=== PATIENT | female | born 1980 | race Caucasian/White ===

== ENCOUNTER 2022-03-14 12:59 | Emergency (ER) | payer BC, SELFPAY ==
[2022-03-14] VITALS (7 sets, daily range): BP systolic 144–181; BP diastolic 83–102; PULSE 65–77; RESP 18; TEMP 36.7; O2SAT 97–98; BMI 28.3
--- NOTE | 2022-03-14 14:25 | ED.FEMALEGU ---
HPI - Female Genitourinary General Time Seen by Provider: 14:25 Date Seen: 03/14/22 Chief complaint: Vaginal Bleeding Stated complaint: Severe menstrual bleeding Time Seen by Provider: 03/14/22 14:04 Source: patient and RN notes reviewed Mode of arrival: ambulatory Limitations: no limitations History of Present Illness HPI Narrative: Jessica is a 41-year-old female coming in with heavy bleeding the last 36 hours. It has abated some, has caused her to feel lightheaded but she denies shortness of breath, chest pain, weakness. No sense of palpitations or fast heart rate. She has had normal Pap smears, did just have March 03 at [facility] but has not heard the results back yet. I did check her records and the result is not in there yet. She did have a normal CBC and TSH done for labs that day. She has a pelvic ultrasound scheduled. She has had 3 prior C-sections, did have a recent negative test per her visit note of 03/03/2022. She had had very routine regular. Sin tell after her tubal ligation. . Started becoming irregular with spacing out, irregular spotting at times. They have started to become heavy, reports lots of clot in the last 36 hours and heavy bleeding. She is a smoker, is not aware of any family history of any female type cancers. Pertinent past history: tubal ligation Onset (ago): hour(s) (36 hours of heavy bleeding) Location of symptoms: pelvis (Is getting cramping and low back pain with this.) and low back Severity: moderate Quality of pain: cramping Consistency: intermittent Vaginal discharge: other (Bleeding) Vaginal bleeding: heavy and clots Patient : No (But will confirm with qualitative hCG) Related Data Home Medications Medication Instructions Recorded Confirmed magnesium stearate ea MISCELLANEOUS 03/03/22 03/03/22 Previous Rx's Medication Instructions Recorded bupropion HCl 150 mg 24 hr tablet, 150 mg PO QAM #90 tab 03/08/22 extended release trazodone 50 mg tablet 50 - 150 mg PO QDAY #60 tab 03/08/22 medroxyprogesterone 10 mg tablet 20 mg PO BID 10 Days #40 tab 03/14/22 (Provera) Allergies Allergy/AdvReac Type Severity Reaction Status Date / Time codeine Allergy Mild Vomiting Verified 03/03/22 12:36 Review of Systems Status of ROS: Reports: 6 or more systems reviewed and unremarkable except as noted in History and below [facility] Medical History Anxiety and depression Chest pain Elevated blood pressure reading Insomnia Irregular menstrual bleeding Surgical History History of History of tonsillectomy History of tubal ligation Family History (Updated 03/03/22 @ 13:47 by Carlie Owusu PA-C) Father High blood pressure Pancreatic cancer Maternal Grandfather FH: prostate cancer Mother ALS (amyotrophic lateral sclerosis) Social History Smoking Status: Current every day smoker What tobacco products do you use: cigarettes Do you use any of these nicotine containing products: None Second hand tobacco smoke exposure: No How often do you have a drink containing alcohol: 2-3 times a week How often do you have six or more drinks on one occasion: Never AUDIT-C Alcohol total score: 3 Non-prescribed substance use: denies use Little interest or pleasure in doing things: more than half the days Feeling down, depressed, or hopeless: more than half the days Exam Const: Vital Signs, click to edit/add: Vital Signs - 24 hr 03/14/22 13:17 03/14/22 14:15 03/14/22 14:30 Temperature 98.0 F Pulse Rate [Right Pulse Oximeter] 77 68 Respiratory Rate 18 Blood Pressure [Ri ght Upper Arm] 181/99 H 159/102 H 153/90 H Pulse Oximetry 98 03/14/22 15:00 03/14/22 15:30 03/14/22 16:35 Temperature Pulse Rate [Right Pulse Oximeter] 66 71 65 Respiratory Rate Blood Pressure [Ri ght Upper Arm] 145/93 H 147/88 H 144/92 H Pulse Oximetry 98 98 98 Documenting provider has reviewed patient's vital signs: yes Common normals: no apparent distress, average body habitus, oriented x3, healthy appearing and alert HENMT: Common normals: normocephalic, head/scalp atraumatic and hearing grossly normal bilaterally Head and scalp: normocephalic and atraumatic Eye: Common normals: PERRL, EOMs intact bilaterally, conjunctivae normal and no scleral icterus Conjunctiva: conjunctiva(e) normal Pupil: PERRL Neck & C-Spine: Common normals: no lymphadenopathy and thyroid normal Thyroid: thyroid normal Resp: Common normals: normal respiratory effort, no use of accessory muscles and clear to auscultation bilaterally Auscultation: clear to auscultation bilaterally Cardio: Common normals: regular rate, regular rhythm, S1 normal heart sound, S2 normal heart sound, no gallops, no clicks and no murmurs Rate: regular rate Rhythm: regular rhythm Heart sounds: S1 normal and S2 normal GI: Common normals: Normal to inspection, nondistended, normoactive bowel sounds present, soft to palpation, non-tender, no hepatosplenomegaly and no masses Palpation: soft and no hepatosplenomegaly : Other: Exam deferred at this point, did just have a pelvic exam 03/03/2022. Neuro: Common normals: oriented x3 Sensorium/orientation: alert Course Course Hospital Course: Patient and I reviewed that we will obtain her pelvic ultrasound today. We will recheck a hemoglobin to ensure no significant change from her baseline, we will confirm negative status with a qualitative hCG. We have reviewed that this can be typical with a gene with irregular bleeding/dysfunctional uterine bleeding, there can be things like adenomyosis, fibroids, even other more concerning pelvic pathology like uterine cancer. I am hopeful and doubtful that this is not concerning pelvic pathology such is uterine cancer for patient at this age but still is in the differential. Being a smoker she cannot take combined oral contraceptives. She may ultimately need to see Ob Gyne and discussed options such is progesterone hormonal control, surgical options. Some of this will depend on the outcome of the ultrasound and if it identifies any pathology. Reevaluation(s) Reevaluation #1: Patient's ultrasound is not showing any concerning pathology, hemoglobin is stable when compared to her recent hemoglobin. She is not . I did speak with Dr. Ochoa at 4:44 p.m., reviewed the case. She agrees patient should not be on combined contraceptives. Will discuss Provera with patient and see if she would like to try this. We would be treating for cessation of bleeding. Have discussed the progesterone with her and she will take a prescription to her pharmacy but thinks she will wait. Vital Signs Vital signs: Initial Vital Signs Temperature 98.0 F 03/14/22 13:17 Temperature Source Temporal Artery Scan 03/14/22 13:17 Pulse Rate 77 03/14/22 13:17 Respiratory Rate 18 03/14/22 13:17 Blood Pressure 181/99 H 03/14/22 13:17 Blood Pressure Mean 126 03/14/22 13:17 Blood Pressure Position Sitting 03/14/22 13:17 Oxygen Delivery Method 03/14/22 13:17 Vital Signs Temperature 98.0 F 03/14/22 13:17 Pulse Rate 77 03/14/22 13:17 Respiratory Rate 18 03/14/22 13:17 Blood Pressure 181/99 H 03/14/22 13:17 Temperature 98.0 F 03/14/22 13:17 Pulse Rate 65 03/14/22 16:35 Respiratory Rate 18 03/14/22 13:17 Blood Pressure 144/92 H 03/14/22 16:35 Pulse Oximetry 98 03/14/22 16:35 MDM - Female Genitourinary MDM Narrative Medical decision making narrative: See hospital course. Medical Records Attestation: I reviewed the patient's medical records. Lab Data Labs: Lab Results 03/14/22 03/14/22 Range/Units 14:39 14:39 Hgb 13.0 (12.0-16.0) gm/dL HCG, Qual Negative (Negative) Imaging Data Pelvic US: Attestation: I have reviewed the pertinent imaging results. Radiologist's impression: Patient: JESSICA TYLER Facility:?[facility] Patient ID:?[id number] Site Patient ID:?[id number]. Site :?[id number] Study:?US Pelvis -03/14/2022 4:08:30 PM Ordering Physician:?Gagandeep Gray Final Report: INDICATION: Menorrhagia, irregular bleeding. TECHNIQUE: Ultrasound pelvis transabdominal and transvaginal for better assessment or to better visualize the endometrium. COMPARISON: None. FINDINGS: Uterus: 10 x 5 x 4 cm. Normal echotexture of the myometrium. No masses. Endometrium: Transvaginal imaging was performed to better evaluate the endometrium. Endometrial thickness measures 6 mm. No sign of endometrial mass or fluid. Right ovary measures 4 x 3 x 3 cm. Left ovary is not visualized. Right ovary contains a simple appearing 2.5 cm cyst with an internal daughter cyst. Cul-de-sac: No significant free fluid. IMPRESSION: 1. Normal uterus and endometrium. No finding to explain menorrhagia. 2. Benign-appearing 2.5 cm right ovarian cyst with an internal daughter cyst. Dictated by Dong Melgar MD @ 03/14/2022 5:06:31 PM (Electronic Signature) Critical Care Time Critical Care Time Critical Care Time: No Discharge Plan Discharge Clinical Impression: Irregular menstrual bleeding, Menorrhagia Patient Disposition: Home, Self-Care Condition: Stable Instructions: Abnormal (Dysfunctional) Uterine Bleeding (ED), Menorrhagia (ED) Additional Instructions: Can try the progesterone with further heavy bleeding. Do expect to have a withdrawal bleed or more regular. After the progesterone is done. Recommend follow up with OB Gyne, can contact [place] [facility] to schedule an appointment. Do recommend monitoring your blood pressure to ensure that you are not developing high blood pressure. Activity Level: No Restrictions Discharge Diet: Regular Prescriptions: New medroxyprogesterone [Provera] 10 mg tablet 20 mg PO BID 10 Days Qty: 40 0RF No Action magnesium stearate Powder miscellaneous 0RF trazodone 50 mg tablet 50 - 150 mg PO QDAY Qty: 60 0RF bupropion HCl 150 mg tablet extended release 24 hr 150 mg PO QAM Qty: 90 0RF Follow Up/Referrals: Provider,Not a Local [Referring] - Stand Alone Forms: [employer] Info Instructions
--- NOTE | 2022-03-14 14:39 | CRLHL7_ITS ---
For Patients: As a result of the Century Cures Act, medical imaging exams and procedure reports are released immediately into your electronic medical record. You may view this report before your referring provider. If you have questions, please contact your health care provider. INDICATION: Menorrhagia, irregular bleeding. TECHNIQUE: Ultrasound pelvis transabdominal and transvaginal for better assessment or to better visualize the endometrium. COMPARISON: None. FINDINGS: Uterus: 10 x 5 x 4 cm. Normal echotexture of the myometrium. No masses. Endometrium: Transvaginal imaging was performed to better evaluate the endometrium. Endometrial thickness measures 6 mm. No sign of endometrial mass or fluid. Right ovary measures 4 x 3 x 3 cm. Left ovary is not visualized. Right ovary contains a simple appearing 2.5 cm cyst with an internal daughter cyst. Cul-de-sac: No significant free fluid. IMPRESSION: 1. Normal uterus and endometrium. No finding to explain menorrhagia. 2. Benign-appearing 2.5 cm right ovarian cyst with an internal daughter cyst. Dictated by Dong Melgar MD @ 03/14/2022 5:06:31 PM (Electronically Signed)
[2022-03-14 15:40] LABS: HCG Qualitative Serum* Negative (Negative)
== END 2022-03-14 17:31 | disposition home or self-care (01) ==
PROVIDERS: Emergency Provider Family Medicine; PCP Physician Assistant Medical
DX: N92.6 Irregular menstruation, unspecified (principal); N92.0 Excessive and frequent menstruation with regular cycle
CPT/HCPCS: 36415; 76830; 76856; 84703; 85018; 99283; 99284

== ENCOUNTER 2022-05-09 11:50 | Outpatient (CLI) | payer BC, SELFPAY | END 2022-05-09 11:51 | disposition home or self-care (01) | LOC: FRMREF 05-12 11:22 | PROVIDERS: PCP Physician Assistant Medical; Visit Provider Physician Assistant Medical | DX: R30.0 Dysuria (principal); N39.0 Urinary tract infection, site not specified | CPT/HCPCS: 87086; 87186 ==

== ENCOUNTER 2022-05-10 15:10 | Outpatient (CLI) | payer BC, SELFPAY ==
--- NOTE | 2022-05-10 15:20 | CRLHL7_ITS ---
For Patients: As a result of the Century Cures Act, medical imaging exams and procedure reports are released immediately into your electronic medical record. You may view this report before your referring provider. If you have questions, please contact your health care provider. BILATERAL SCREENING MAMMOGRAM WITH COMPUTER-AIDED DETECTION TECHNIQUE: CC and MLO views were obtained. These mammographic images have been obtained using full-field digital technique. These mammographic images were interpreted with the benefit of computer-aided detection. COMPARISON FILM: No comparison available. FINDINGS: There are scattered areas of fibroglandular density IMPRESSION: There is no radiographic evidence for malignancy. ASSESSMENT: BI-RADS Category 1: Negative RECOMMENDATION: Routine screening mammogram in 1 year. A lay language report of this examination will be provided to the patient. Stevo Crowell M.D. Diagnostic Radiologist [email or web address] ROBERT/Dictated by: Stevo Crowell MD @ 05/25/2022 12:04:00 PM (Electronically Signed)
== END 2022-05-10 15:11 | disposition home or self-care (01) ==
LOC: MAMMO 15:11
PROVIDERS: PCP Physician Assistant Medical; Visit Provider Physician Assistant Medical
DX: Z12.31 Encounter for screening mammogram for malignant neoplasm of breast (principal)
CPT/HCPCS: 77063; 77067

== ENCOUNTER 2022-05-19 10:04 | Outpatient (CLI) | payer BC, SELFPAY | END 2022-05-19 10:05 | disposition home or self-care (01) | LOC: FRMREF 10:05 | PROVIDERS: PCP Physician Assistant Medical; Visit Provider Physician Assistant Medical | DX: N39.0 Urinary tract infection, site not specified (principal) | CPT/HCPCS: 87086 ==

== ENCOUNTER 2023-03-15 09:21 | Outpatient (CLI) | payer OTHER, SELFPAY | END 2023-03-15 09:22 | disposition home or self-care (01) | LOC: NFLDREF 03-16 15:38 | PROVIDERS: PCP Physician Assistant Medical; Referring Provider Physician Assistant Medical; Visit Provider Physician Assistant Medical | DX: Z00.00 Encounter for general adult medical examination without abnormal findings (principal); E78.5 Hyperlipidemia, unspecified; E01.0 Iodine-deficiency related diffuse (endemic) goiter; N92.6 Irregular menstruation, unspecified; Z13.29 Encounter for screening for other suspected endocrine disorder; Z13.9 Encounter for screening, unspecified | CPT/HCPCS: 80053; 80061; 84443 ==

== ENCOUNTER 2023-03-19 14:57 | Outpatient (CLI) | payer OTHER, SELFPAY ==
--- NOTE | 2023-03-19 15:00 | CRLHL7_ITS ---
For Patients: As a result of the Cures Act, medical imaging exams and procedure reports are released immediately into your electronic medical record. You may view this report before your referring provider. If you have questions, please contact your health care provider. INDICATION: Neck swelling. Rule out thyroid lobe nodule. TECHNIQUE: Directed thyroid ultrasound. FINDINGS: The right thyroid lobe measures 5.1 x 2.0 x 2.4 cm. The left thyroid lobe measures 4.9 x 1.4 x 1.8 cm. The isthmus measures 0.3 cm in thickness. Diffusely heterogeneous echotexture throughout the thyroid gland. Within the inferomedial left thyroid lobe is a well-circumscribed isoechoic to slightly hyperechoic nodule measuring 1.4 x 0.7 x 1.6 cm. This is solid. TI-RADS 3. Within the superior left thyroid gland there is a 4 x 5 x 6 mm cystic lesion TI-RADS 2. Within the inferolateral right thyroid gland is a fairly well circumscribed 2.4 x 1.8 x 1.8 cm cystic and solid nodule without calcifications. This does not demonstrate increased vascularity. TI-RADS 3. No annia-thyroidal masses. IMPRESSION: 1. Heterogeneous thyroid gland tissue diffusely. 2. Two small nodules on the left and one on the right. Please see above description. 3. TI-RADS 3. Dictated by Mateo Geronimo MD @ 03/19/2023 8:01:32 PM (Electronically Signed)
== END 2023-03-19 14:58 | disposition home or self-care (01) ==
LOC: US 14:57
PROVIDERS: PCP Physician Assistant Medical; Visit Provider Physician Assistant Medical
DX: E01.0 Iodine-deficiency related diffuse (endemic) goiter (principal); R22.1 Localized swelling, mass and lump, neck
CPT/HCPCS: 76536

== ENCOUNTER 2023-09-20 09:54 | Outpatient (CLI) | payer OTHER, SELFPAY ==
[2023-09-24 08:37] LABS: Albumin 4.45 g/dL (3.75-5.01); Alpha 1 Globulin 0.22 g/dL (0.19-0.46); Alpha 2 Globulin 0.64 g/dL (0.48-1.05); Total Protein, Serum 6.8 g/dL (6.3-8.2)
== END 2023-09-20 09:55 | disposition home or self-care (01) ==
PROVIDERS: PCP Physician Assistant Medical; Visit Provider Family Medicine
DX: G12.21 Amyotrophic lateral sclerosis (principal); E01.0 Iodine-deficiency related diffuse (endemic) goiter; E78.5 Hyperlipidemia, unspecified; R53.83 Other fatigue; T50.B95A Adverse effect of other viral vaccines, initial encounter
CPT/HCPCS: 82306; 83735; 84165; 84443; 86039; 86060; 86200; 86334; 86376; 86431

== ENCOUNTER 2024-05-06 07:21 | Outpatient (CLI) | payer OTHER, SELFPAY | END 2024-05-06 07:22 | disposition home or self-care (01) | PROVIDERS: PCP Physician Assistant Medical; Visit Provider Family Medicine | DX: E78.5 Hyperlipidemia, unspecified (principal); E01.0 Iodine-deficiency related diffuse (endemic) goiter; Z11.59 Encounter for screening for other viral diseases; Z13.228 Encounter for screening for other metabolic disorders | CPT/HCPCS: 80053; 80061; 84443; 86803 ==

== ENCOUNTER 2024-12-05 13:23 | Emergency (ER) | payer OTHER, SELFPAY ==
--- OUTSIDE RECORDS SUMMARY | 2024-12-05 13:26 | XMS_ITS | Clinical Summary ---
Author Organization [facility] Address [address] [place] [address] Care Team Providers Care Phototypesetter Operator Name Role Phone Radha Crespo MD Primary Care Provider [phone] Source Comments You are receiving this document as you are listed as the primary care provider,follow-up provider, or the patient has been referred to you for consultation.This is in compliance with the Medicare andMedicaid EHR Incentive Program,which states Providers who transition their patient to another setting of careor provider of care or refers their patient to another provider of care shouldprovide summary care record for each transition of care or referral. [employer] website Allergies Active Allergy Reactions Criticality Noted Date Comments Codeine Nausea And Vomiting 08/23/2004 Medications ondansetron (ZOFRAN-ODT) 4 MG disintegrating tablet Take 1 Tablet by mouth every 8 hours as needed for Nausea. 20 Tablet 0 Active levonorgestrel-ethi nyl estrad (SRONYX) 0.1-20 MG-MCG tabletIndications:M enorrhagia with regular cycle Take 1 Tablet by mouth daily. 90 Tablet 3 0 Active FLUoxetine (PROZAC) 20 MG capsuleIndications: Mild episode of recurrent major depressive disorder (HRC) Take 1 Capsule by mouth daily. 30 Capsule 0 Active SUMAtriptan (IMITREX) 50 MG tabletIndications:M igraine without status migrainosus, not intractable, unspecified migraine type TAKE 1 TABLET BY MOUTH NEEDED FOR MIGRAINE. MAY REPEAT ONE TABLET AFTER 2 HOURS IF NEEDED. MAXIMUM 4 TABS/24 HOURS AND 9 DAYS/MONTH 9 Tablet 2 0 Active amitriptyline (ELAVIL) 100 MG tabletIndications:M igraine TAKE 1 TABLET BY MOUTH DAILY AT BEDTIME. INDICATIONS: MIGRAINE HEADACHE 90 Tablet 1 Active Active Problems Problem Noted Date Diagnosed Date Mild episode of recurrent major depressive disor mckenna 05/23/2017 Osteoarthrosis, hand 12/23/2013 Overview (04/25/2017): Osteoarthrosis, unspecified whether generalized or localized, hand Acne 04/16/2012 Smoker 02/20/2012 Overview (08/05/2018): Social smoker. Headache 02/02/2011 Overview (04/25/2017): Headache Vascular Resolved Problems Problem Noted Date Diagnosed Date Resolved Date Overuse syndrome 09/01/2014 03/02/2015 Previous delivery, antepartum condition or complication 10/10/2012 10/10/2012 History of 10/10/2012 013 Overview (04/06/2016): 2005,2007 and 2012 Gestational hypertension 09/02/2012 Previous section co mplicating 09/02/2012 10/10/2012 Intrahepatic cholestasis of 08/28/2012 08/30/2012 Intrahepatic cholestasis of , antepartum 08/26/2012 10/16/2012 Fetus with viral damage via mother with problem 08/12/2012 10/16/2012 Overview (04/25/2017): maternal Parvovirus infection documented ; Suspected damage to fetus from viral disease in mother, affecting management of mother, antepartum condition or complication abnormality affecting management of mother, antepartum condition or complication 07/31/2012 10/16/2012 Overview (04/25/2017): bilateral club foot deformity ; Other known or suspected abnormality, not elsewhere classified, affecting management of mother, antepartum condition or complication Bilateral club feet 06/12/2012 10/10/20 12 Previous delivery, antepartum condition or complication 03/19/2012 10/10/2012 Encounter for supervision of normal in multigravida 03/19/2012 10/10/2012 Overview (04/25/2017): Supervision of normal subsequent Immunizations Immunization Administration Dates Next Due Flu Vac Preserv Free (3+yrs) 07/10/2012,06/20/20 07 Influenza IIV4 (Quadrivalent) 0.5mL (24162) 11/2017 Moderna Monovalent 12+ 01/26/2021,12/29/2020 TDAP (BOOSTRIX) 04/03/2006 Td (7+ yrs) 05/24/2017 Family History Medical History Relation Name Comments High Cholesterol Father Hypertension Father Heart Disease Maternal Grandfather Cancer Paternal Grandfather Cancer, Breast Negative Family History Relation Name Status Comments Father Alive Mother (Age 58) ALS Brother Alive Maternal Grandfather Maternal Grandmother Paternal Grandfather Paternal Grandmother Alive Sister Alive Social History Tobacco Use Types Packs/Day Years Used Date Smoking Tobacco: Some Days Cigarettes 0.3 26.3 Started: 09/03/1998 Smokeless Tobacco: Never Comments:Smoking History Pac ks/day: Alcohol Use Standard Drinks/Week Comments Yes 2 (1 standard drink = 0.6 oz pure alcohol) Alcoholic Drinks/day:glass of wine or a beer twice a week Comments No Sex and Gender Information Value Date Recorded Sex Assigned at Not on file Legal Sex Female 7:01 AM CDT Gender Identity Not on file Sexual Orientation Not on file 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 on file Not on file N ot on file Last Filed Vital Signs Vital Sign Reading Time Taken Comments Blood Pressure 129/103 11/20/2019 9:38 AM CDT Pulse 71 11/20/2019 9:37 AM CDT Temperature 36.8 C (98.2 F) 11/12/2019 2:35 PM CDT Respiratory Rate 16 11/12/2019 2:35 PM CDT Oxygen Saturation 97% 11/12/2019 2:35 PM CDT Inhaled Oxygen Concentration - - Weight 78 kg (171 lb 14.4 oz) 08/05/2018 3:44 PM REED POLISHER Height 160.7 cm (5' 3.25) 08/05/2018 3:44 PM CS T Body Mass Index 30.21 08/05/2018 3:44 PM REED POLISHER Plan of Treatment Health Maintenance Due Date Last Done Comments Hep C Screening (Preventive Services) 1981 HepB (1) 2000 Pneumococcal (1 of 2 - PCV) 2000 Mammogram 08/15/2019 08/15/2018 Adult Preventive Visit 08/05/2020 08/05/2018, 2016 Cervical Cancer Screening 08/05/20212017, 08/05/2018, 02/16/2015, Additional history exists COVID-19 Vaccine ( season) 2024 01/26/2021, 12/29/2020 Influenza (#1) 2024 08/05/2018, 10/2013, 07/10/2012, Additional history exists DTaP/Tdap/Td (3 - Tdap) 05/24/2027 05/24/2017, 04/03 Zoster/Shingles (1 of 2) 2031 HIV Screening (Preventive Services) Completed 02/20/2012, 04/04/2007 HPV Vaccine Aged Out No longer eligi ble based on patient's age to complete this topic HepA Aged Out No longer eligi ble based on patient's age to complete this topic Hib Aged Out No longer eligi ble based on patient's age to complete this topic IPV (Polio) Aged Out No longer eligi ble based on patient's age to complete this topic MCV4 Aged Out No longer eligi ble based on patient's age to complete this topic Meningococcal B Aged Out No longer el igible based on patient's age to complete this topic Procedures Procedure Name Priority Date/Time Associated Diagnosis Comments YMM MAMMOGRAM DIAG BILAT W 3D BOOKER Routine 08/15/2018 1:56 PM REED POLISHER Breast lump ANATOMICAL PATH LIQUID BASED Routine 08/05/2018 4:26 PM REED POLISHER HIV ANTIBODY Routine 02/20/2012 3:30 PM CDT Special screening examination for other specified viral diseases Screening examination for venereal disease from Last 3 Months or Most Recently Relevant to Health Maintenance Results * [facility] Mammogram Diag Bilat W 3D Booker (08/15/2018 1:56 PM REED POLISHER) Anatomical Region Laterality Modality Breast Bilateral Mammography 08/15/2018 1:50 PM REED POLISHER Impressions 08/15/2018 3:11 PM REED POLISHER IMPRESSION: ACR BI-RADS 1: Negative. RECOMMENDATION: 1. Routine yearly mammography to start at age 40. 2. Clinical follow up of left breast lump. Given the lack of imaging findings, further management should be based on clinical grounds. The results and recommendations of this examination will be communicated to the patient by the [facility] and we will attempt to schedule any recommended imaging follow up with the patient. Narrative 08/15/2018 3:11 PM REED POLISHER EXAMINATION: Bilateral diagnostic mammography with focused left breast ultrasound HISTORY: Left breast lump COMPARISON: None FINDINGS: Bilateral diagnostic mammography with tomosynthesis demonstrates scattered fibroglandular densities bilaterally. No concerning mammographic findings within either breast. Focused left breast ultrasound demonstrates normal-appearing fibroglandular tissue in the area of the patient's palpable (1:30 position, 9 cm from the nipple). Additionally, normal appearing low left axillary node just superior to the patient's lump. No concerning sonographic findings. Procedure Note Radha Brown MD - 08/15/2018 EXAMINATION: Bilateral diagnostic mammography with focused left breastultrasound HISTORY: Left breast lump COMPARISON: None FINDINGS: Bilateral diagnostic mammography with tomosynthesis demonstratesscattered fibroglandular densities bilaterally. No concerning mammographicfindings within either breast. Focused left breast ultrasound demonstrates normal-appearingfibroglandular tissue in the area of the patient's palpable (1:30position, 9 cm from the nipple). Additionally, normal appearing low leftaxillary node just superior to the patient's lump. No concerningsonographic findings. IMPRESSION IMPRESSION: ACR BI-RADS 1: Negative. RECOMMENDATION: 1. Routine yearly mammography to start at age 40. 2. Clinical follow up of left breast lump. Given the lack of imagingfindings, further management should be based on clinical grounds. The results and recommendations of this examination will be communicatedto the patient by the [facility] [place] and we will attempt toschedule any recommended imaging follow up with the patient. Coreen Villalobos MD RAD [facility] Final Result * Pap Smear (08/05/2018 4:26 PM REED POLISHER) 08/05/2018 4:26 PM REED POLISHER Narrative PN SOFT - 08/20/2018 4:04 PM REED POLISHER FINAL GYNECOLOGICAL CYTOLOGY REPORT Pathology #: [id number] Date Obtained: 08/05/2018 Date Received: 08/06/2018 INTERPRETATION/RESULTS: Negative for Intraepithelial Lesion or Malignancy. SPECIMEN ADEQUACY: Satisfactory for Evaluation. No endocervical cells/transformation zone component present. Verified on 08/20/2018 by MIGUEL GREEN MD (electronic signature) CLINICAL NOTES: Abnormal bleeding: No, LMP: 07/16/18, Menstrual status: None Apply, Current form of therapy: Hormone Therapy LIQUID BASED PAP SMEAR SPECIMEN TYPE: ROUTINE CERVICAL PAP TEST PLEASE NOTE: The pap smear is a screening test designed to aid in the detection of cervical cancer and its precursor lesions. It is not a diagnostic procedure and should not be used as the sole means of detecting cervical cancer. Both false-positive and false-negative reports may occur. [place] [address] Result [facility] Coreen Villalobos MD LAB_1 Final Result Performing Organization Address [facility] de Phone Number [address] [address] * HIV ANTIBODY (02/20/2012 3:30 PM CDT) HIV 1/HIV 2 Non-React Non-Reacti ve HP CONVERSION 02/20/2012 3:30 PM CDT 02/20/2012 9:23 PM CDT Shannon Vargas APRN, OCEAN BIOLOGIST LAB_1 Fi nal Result Performing Organization Address [facility] Co de Phone Number HP CONVERSION from Last 3 Months or Most Recently Relevant to Health Maintenance Insurance BC OUT OF STATE [facility] BC OUT OF STATE Care Teams Phototypesetter Operator Relationship Specialty Start Date End Date Radha Crespo MD [address] [place] [address] PCP - General Family Practice 05/13/20
--- OUTSIDE RECORDS SUMMARY | 2024-12-05 13:26 | XMS_ITS | Clinical Summary ---
Author Organization [facility] Address [facility] [place] [address] Care Team Providers Care Supply Chain Program Manager Name Role Phone Bailee Chin Primary Care Provider Unavailabl e Allergies Active Allergy Reactions Criticality Noted Date Comments Codeine Nausea And Vomiting 08/23/2004 Medications SUMAtriptan (IMITREX) 50 mg tablet Take 50 mg by mouth. 02/09/2020 Active buPROPion (WELLBUTRIN XL) 300 mg Extended-Release tablet Take 300 mg by mouth every morning. 06/08/2022 Active traZODone (DESYREL) 50 mg tablet TAKE 50 - 150 MG ORALLY EVERY DAY 06/08/2022 Active Active Problems Problem Noted Date Diagnosed Date Mild episode of recurrent major depressive disor mckenna 05/23/2017 Smoker 02/20/2012 Overview (07/03/2022): Social smoker. Headache 02/02/2011 Overview (07/03/2022): Headache Vascular Immunizations Immunization Administration Dates Next Due Influenza, IIV4 08/05/2018 Td (Age >=7 Years) 05/24/2017 Td, Preservative Free (age >= 7 Years) 7 Tdap 04/03/2006 Family History Medical History Relation Name Comments Mental illness Brother Good Health Daughter Cancer-pancreatic Father Heart Disease Maternal Grandfather Heart attack Maternal Grandfather Unknown Maternal Grandmother ALS Mother Cancer Paternal Grandfather multipl e Brain Aneurysm Paternal Grandmother No Known Problems Sister Good Health Son x 2 Relation Name Status Comments Brother Alive Daughter Alive Father Maternal Grandfather Maternal Grandmother Mother Paternal Grandfather Paternal Grandmother Sister Alive Son x 2 Alive Social History Tobacco Use Types Packs/Day Years Used Date Smoking Tobacco: Former Cigarettes 1 24 0 09/03/1998 - 09/15/2022 Passive Smoke Exposure: Past Smokeless Tobacco: Never Alcohol Use Standard Drinks/Week Comments Yes 2 (1 standard drink = 0.6 oz pur e alcohol) occ. 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 on file Not on file Not on file Obstetrics History Last Filed Vital Signs Vital Sign Reading Time Taken Comments Blood Pressure 128/74 12/11/2022 1:48 PM CDT Pulse 93 09/12/2022 6:33 PM ECOMMERCE MERCHANDISING MANAGER Temperature 36.7 C (98 F) 09/12/2022 6:33 PM ECOMMERCE MERCHANDISING MANAGER Respiratory Rate 18 09/12/2022 6:33 PM ECOMMERCE MERCHANDISING MANAGER Oxygen Saturation 98% 09/12/2022 6:33 PM ECOMMERCE MERCHANDISING MANAGER Inhaled Oxygen Concentration - - Weight 74.8 kg (165 lb) 12/11/2022 1:48 PM CDT Height 160 cm (5' 3) 12/11/2022 1:48 PM CDT Body Mass Index 29.23 12/11/2022 1:48 PM CDT Plan of Treatment Health Maintenance Due Date Last Done Comments HIV for age 15-65 1996 Hepatitis C screening for age 18-79 1999 Depression screening for age 12+ 07/03/2023 07/03/2022 BMI (ht and wt on same day) for age 18+ 12/12/2023 12/11/2022, 07/03/2022, 02/24/2021 COVID-19 vaccine series ( season) 2024 09/18/2021, 01/26/2021, 12/29/2020 Influenza Vaccine (Season Ended) 2025 08/05/2018 Pap test for age 21-65 03/14/2026 , 03/14/2023, 03/03/2022, Additional history exists Tetanus booster 05/24/2027 05/24/2017, 05/05, 04/03/2006 Tdap Completed 04/03/2006 Pneumococcal series for age 6-49 Aged Out No longer eligible based on patient's age to complete this topic Procedures Procedure Name Priority Date/Time Associated Diagnosis Comments HPV HIGH RISK Routine 03/14/2023 3:00 PM CDT from Last 3 Months or Most Recently Relevant to Health Maintenance Results * HPV HIGH RISK (03/14/2023 3:00 PM CDT) TYPE 16 Negative Negative 03/20/2023 11:44 AM CDT [facility] TYPE 18 Negative Negative 03/20/2023 11:44 AM CDT [facility] OTHER HIGH RISK TYPES Negative Negative 03/20/2023 11:44 AM CDT [facility] Other (Cervical/Vagina l) 03/14/2023 3:00 PM CDT 03/15/2023 6:31 PM CDT Narrative [facility] - 03/20/2023 11:44 AM CDT HPV types 16, 18, 31, 33, 35, 39, 45, 51, 52, 56, 58, 59, 66 and 68 DNA were undetectable or below the pre-set threshold. Methodology: Dmitriy Addis 4800 HPV Test us Carlie Owusu PA-C MICROBIOLOGY Final Result [facility] [address] [place] [address], [place] from Last 3 Months or Most Recently Relevant to Health Maintenance Insurance [facility] [employer] Care Teams Supply Chain Program Manager Relationship Specialty Start Date [place] [facility] [place] PCP - General 07/03/22
[2024-12-05 13:28] VITALS: BP 149/87; PULSE 95; RESP 18; TEMP 37.7; O2SAT 97; BMI 28.3
--- NOTE | 2024-12-05 13:42 | CRLHL7_ITS ---
For Patients: As a result of the Century Cures Act, medical imaging exams and procedure reports are released immediately into your electronic medical record. You may view this report before your referring provider. If you have questions, please contact your health care provider. Indication: Right-sided visual loss. Technique: Multiplanar multisequence noncontrast MR images of the brain. Comparison: None. Findings: The ventricles and sulci are within normal limits for patient age. No mass effect or midline shift. No parenchymal signal abnormalities. No intracranial hemorrhage or pathologic extra-axial fluid collection. No diffusion restriction to suggest acute infarction. The major arterial flow voids of the skull base are preserved. The globes are symmetric. Mild left maxillary sinus mucosal thickening. Trace right mastoid fluid. Impression: Unremarkable noncontrast MRI of the brain. Dictated by Carlos Vaughn MD @ 12/05/2024 4:45:25 PM (Electronically Signed)
--- NOTE | 2024-12-05 13:45 | ED_ITS ---
HPI - Eye Problem General Chief complaint: Eye Problems <Andrzej Boston MD - Last Filed: 12/06/24 19:53> Stated complaint: Rt eye issues <Andrzej Boston MD - Last Filed: 12/06/24 19:53> Time Seen by Provider: 12/05/24 13:25 <Andrzej Boston MD - Last Filed: 12/06/24 19:53> History of Present Illness HPI Narrative: Patient is a 44-year-old woman who comes in today with 2-3 day history of a right lateral visual field defect. She has been seen by her local imaging science professor in actually was seen at the vision center earlier today dilated eye exam which was by reports normal. Patient presents with her eyes dilated. The visual field defect is currently not present but has been present earlier today. She has no defects in her eye range of motion no DIESEL FITTER MECHANIC symptoms of fevers chills neurologic symptoms other than her visual field changes. Patient otherwise is in her usual state of health. She has had no history of any neurologic diseases in the past but does smoke tobacco. <Andrzej Boston MD - Last Filed: 12/06/24 19:53> Related Data Home medications: Home Medications ?Medication ?Instructions ?Recorded ?Confirmed magnesium citrate 100 mg capsule 100 mg PO BID 03/14/23 12/05/24 Previous Rx's ?Medication ?Instructions ?Recorded bupropion HCl 300 mg 24 hr tablet, 300 mg PO QAM #90 tabs 05/06/24 extended release sumatriptan succinate 50 mg tablet See Rx Instructions PO .COMPLEX #9 05/06/24 tabs venlafaxine 75 mg capsule,extended 75 mg PO QHS #30 caps 06/02/24 release 24 hr trazodone 50 mg tablet 50 mg PO DAILY #90 tabs 10/13/24 propranolol 10 mg tablet 10 mg PO TID PRN anxiety #30 tabs 10/30/24 <Andrzej Boston MD - Last Filed: 12/06/24 19:53> Allergies/adverse reactions: Allergies Allergy/AdvReac Type Severity Reaction Status Date / Time codeine Allergy Mild Vomiting Verified 12/05/24 13:34 <Andrzej Boston MD - Last Filed: 12/06/24 19:53> Review of Systems Status of ROS: Reports: 10 or more systems reviewed and unremarkable except as noted in History and below <Andrzej Boston MD - Last Filed: 12/06/24 19:53> [facility] Surgical History: Surgical History History of bilateral breast reduction surgery ?Z98.890 - Other specified postprocedural states (ICD-10) History of abdominoplasty ?Z98.890 - Other specified postprocedural states (ICD-10) History of tubal ligation ?Z98.51 - Tubal ligation status (ICD-10) History of ?Z98.891 - History of uterine scar from previous surgery (ICD-10) History of tonsillectomy ?Z90.89 - Acquired absence of other organs (ICD-10) <Andrzej Boston MD - Last Filed: 12/06/24 19:53> Family History: Family History Father High blood pressure Pancreatic cancer Maternal Grandfather FH: prostate cancer Mother ALS (amyotrophic lateral sclerosis) <Andrzej Boston MD - Last Filed: 12/06/24 19:53> Social History: Social History What is your current living situation?: I presently have a place to live Problems where you live: no known problems In the past 12 months, utilities in danger of being shut off: no In past 12 months, lack of transportation kept you from medical appts, meetings, work, or getting things needed for daily living: no In the past 12 mos, have been you worried that your food would run out before you had money to buy more?: never true In the past 12 mos, the food you bought just didn't last and you didn't have money to buy more?: never true Smoking Status: Current every day smoker What tobacco products do you use: cigarettes Do you use any of these nicotine containing products: None Second hand tobacco smoke exposure: No How often do you have a drink containing alcohol: 2-3 times a week How often do you have six or more drinks on one occasion: Never AUDIT-C Alcohol total score: 3 Non-prescribed substance use: denies use How often does anyone, including family, friends and others, physically hurt you : never How often does anyone, including family, friends and others, insult or talk down to you: never How often does anyone, including family, friends and others, threaten you with harm: never How often does anyone, including family, friends and others, scream or curse at you: never <Andrzej Boston MD - Last Filed: 12/06/24 19:53> Exam Narrative: Exam Narrative: EXAM GENERAL: Patient appears comfortable and well. EYES: No scleral icterus. Eyes are dilated. Normal posterior exam. ENT: Tympanic membranes and oropharynx normal. THYROID: no thyroid nodules or thyromegaly. LYMPH: No supraclavicular or cervical lymphadenopathy. SKIN: Visible skin seen during exam normal or with benign process only. EXT: No dependent lower extremity pedal edema. HEART: Regular rate and rhythm with no murmurs, rubs, or gallops. LUNGS: Clear to auscultation bilaterally with no crackles or wheezes. ABD: Soft, non tender, non distended. PSYCH: Good eye contact, speech is not pressured. <Andrzej Boston MD - Last Filed: 12/06/24 19:53> Const: Vital Signs, click to edit/add: Vital Signs - 24 hr 12/05/24 13:28 12/05/24 15:08 Temperature 100 F H 98.0 F Pulse Rate [Right Pulse Oximeter] 95 92 Respiratory Rate 18 16 Blood Pressure [Ri ght Upper Arm] 149/87 H 147/92 H Pulse Oximetry 97 98 Oxygen Delivery Me thod Room Air Room Air <Andrzej Boston MD - Last Filed: 12/06/24 19:53> Vital Signs, click to edit/add: Vital Signs - 24 hr 12/05/24 13:28 12/05/24 15:08 Temperature 100 F H 98.0 F Pulse Rate [Right Pulse Oximeter] 95 92 Respiratory Rate 18 16 Blood Pressure [Ri ght Upper Arm] 149/87 H 147/92 H Pulse Oximetry 97 98 Oxygen Delivery Me thod Room Air Room Air <Vincent Garces MD - Last Filed: 12/05/24 16:49> Course Course ED Course: Patient seen and examined no focal defects noted. Will proceed with MRI of the head without contrast. <Andrzej Boston MD - Last Filed: 12/06/24 19:53> Reevaluation(s) Time of Reevaluation #1: 16:49 <Vincent Garces MD - Last Filed: 12/05/24 16:49> Reevaluation #1: Patient was signed over to me at 4:00 p.m. by outgoing ER physician, in anticipation of MRI, MRI is come back entirely normal with no findings, no evidence of any stroke-like syndrome or abnormality with blood flow within the context of noncontrast MRI. I do recommend follow-up with primary care, and Optometry as needed. But no definitive emergency management needs to be done here <Vincent Garces MD - Last Filed: 12/05/24 16:49> Vital Signs Vital signs: Initial Vital Signs Temperature 100 F H 12/05/24 13:28 Temperature Source Temporal Artery Scan 12/05/24 13:28 Pulse Rate 95 12/05/24 13:28 Pulse Rhythm Regular 12/05/24 13:28 Pulse Strength 3+ Normal 12/05/24 13:28 Respiratory Rate 18 12/05/24 13:28 Blood Pressure 149/87 H 12/05/24 13:28 Blood Pressure Mean 107 H 12/05/24 13:28 Blood Pressure Position Sitting 12/05/24 13:28 Pulse Oximetry 97 12/05/24 13:28 Oxygen Delivery Method Room Air 12/05/24 13:28 Vital Signs Temperature 100 F H 12/05/24 13:28 Pulse Rate 95 12/05/24 13:28 Respiratory Rate 18 12/05/24 13:28 Blood Pressure 149/87 H 12/05/24 13:28 Pulse Oximetry 97 12/05/24 13:28 Oxygen Delivery Method Room Air 12/05/24 13:28 Temperature 98.0 F 12/05/24 15:08 Pulse Rate 92 12/05/24 15:08 Respiratory Rate 16 12/05/24 15:08 Blood Pressure 147/92 H 12/05/24 15:08 Pulse Oximetry 98 12/05/24 15:08 Oxygen Delivery Method Room Air 12/05/24 15:08 <Andrzej Boston MD - Last Filed: 12/06/24 19:53> Initial Vital Signs Temperature 100 F H 12/05/24 13:28 Temperature Source Temporal Artery Scan 12/05/24 13:28 Pulse Rate 95 12/05/24 13:28 Pulse Rhythm Regular 12/05/24 13:28 Pulse Strength 3+ Normal 12/05/24 13:28 Respiratory Rate 18 12/05/24 13:28 Blood Pressure 149/87 H 12/05/24 13:28 Blood Pressure Mean 107 H 12/05/24 13:28 Blood Pressure Position Sitting 12/05/24 13:28 Pulse Oximetry 97 12/05/24 13:28 Oxygen Delivery Method Room Air 12/05/24 13:28 Vital Signs Temperature 100 F H 12/05/24 13:28 Pulse Rate 95 12/05/24 13:28 Respiratory Rate 18 12/05/24 13:28 Blood Pressure 149/87 H 12/05/24 13:28 Pulse Oximetry 97 12/05/24 13:28 Oxygen Delivery Method Room Air 12/05/24 13:28 Temperature 98.0 F 12/05/24 15:08 Pulse Rate 92 12/05/24 15:08 Respiratory Rate 16 12/05/24 15:08 Blood Pressure 147/92 H 12/05/24 15:08 Pulse Oximetry 98 12/05/24 15:08 Oxygen Delivery Method Room Air 12/05/24 15:08 <Vincent Garces MD - Last Filed: 12/05/24 16:49> Discharge Plan Discharge Clinical Impression: Change in vision <Andrzej Boston MD - Last Filed: 12/06/24 19:53> Patient Disposition: Home, Self-Care <nAdrzej Boston MD - Last Filed: 12/06/24 19:53> Condition: Stable <Andrzej Boston MD - Last Filed: 12/06/24 19:53> Instructions: Blurred Vision (ED) <Andrzej Boston MD - Last Filed: 12/06/24 19:53> Additional Instructions: home rest follow-up with Optometry as needed, or primary care what I can tell you is your brain MRI was entirely normal, slight fluid in her sinuses, that was not indicative of any infection. <Andrzej Boston MD - Last Filed: 12/06/24 19:53> Activity Level: Light activity <Andrzej Boston MD - Last Filed: 12/06/24 19:53> Light activity <Vincent Garces MD - Last Filed: 12/05/24 16:49> Prescriptions: No Action magnesium citrate 100 mg capsule 100 mg PO BID sumatriptan succinate 50 mg tablet See Rx Instructions PO .COMPLEX Qty: 9 3RF Rx Instructions: take 1 tab at onset of headache; if no relief may repeat 1 tab after at least 2 hrs; max = 4 tabs/24 hr PO bupropion HCl 300 mg tablet extended release 24 hr 300 mg PO QAM Qty: 90 3RF venlafaxine 75 mg capsule,extended release 24hr 75 mg PO QHS Qty: 30 12RF trazodone 50 mg tablet 50 mg PO DAILY Qty: 90 2RF propranolol 10 mg tablet 10 mg PO TID PRN (Reason: anxiety) Qty: 30 0RF <Andrzej Boston MD - Last Filed: 12/06/24 19:53> Follow Up/Referrals: Chelsy Aranda MD [Primary Care Provider] - <Andrzej oBston MD - Last Filed: 12/06/24 19:53> Stand Alone Forms: MyHealth Info Instructions <Andrzej Boston MD - Last Filed: 12/06/24 19:53>
--- OUTSIDE RECORDS SUMMARY | 2024-12-05 14:01 | XMS_ITS | Clinical Summary ---
Author Organization Pending sale to [facility] Address [address] [place] [address] Care Team Providers Care Talent Assistant Name Role Phone Radha Crespo MD Primary Care Provider [phone] Source Comments You are receiving this document [...] for each transition of care or referral. [employer] Window Allergies Active Allergy Reactions Criticality Noted Date [...] (3+yrs) 07/10/2012,06/20/20 07 Influenza IIV4 (Quadrivalent) 0.5mL (54471) 11/2017 Moderna Monovalent 12+ 01/26/2021,12/29/2020 TDAP (BOOSTRIX) [...] (171 lb 14.4 oz) 08/05/2018 3:44 PM HEAT TREATING OPERATOR Height 160.7 cm (5' 3.25) 08/05/2018 3:44 PM CS T Body Mass Index 30.21 08/05/2018 3:44 PM HEAT TREATING OPERATOR Plan of Treatment Health Maintenance Due Date [...] W 3D BOOKER Routine 08/15/2018 1:56 PM HEAT TREATING OPERATOR Breast lump ANATOMICAL PATH LIQUID BASED Routine 08/05/2018 4:26 PM HEAT TREATING OPERATOR HIV ANTIBODY Routine 02/20/2012 3:30 PM CDT Special screening examination for other specified viral diseases Screening examination for venereal disease from Last 3 Months or Most Recently Relevant to Health Maintenance Results * [facility] Mammogram Diag Bilat W 3D Booker (08/15/2018 1:56 PM HEAT TREATING OPERATOR) Anatomical Region Laterality Modality Breast Bilateral Mammography 08/15/2018 1:50 PM HEAT TREATING OPERATOR Impressions 08/15/2018 3:11 PM HEAT TREATING OPERATOR IMPRESSION: ACR BI-RADS 1: Negative. RECOMMENDATION: 1. Routine yearly mammography to start at age 40. 2. Clinical follow up of left breast lump. Given the lack of imaging findings, further management should be based on clinical grounds. The results and recommendations of this examination will be communicated to the patient by the [facility] and we will attempt to schedule any recommended imaging follow up with the patient. Narrative 08/15/2018 3:11 PM HEAT TREATING OPERATOR EXAMINATION: Bilateral diagnostic mammography with focused left [...] will be communicatedto the patient by the [facility] [place] and we will attempt toschedule any recommended imaging follow up with the patient. Coreen Villalobos MD RAD [facility] Final Result * Pap Smear (08/05/2018 4:26 PM HEAT TREATING OPERATOR) 08/05/2018 4:26 PM HEAT TREATING OPERATOR Narrative PN SOFT - 08/20/2018 4:04 PM HEAT TREATING OPERATOR FINAL GYNECOLOGICAL CYTOLOGY REPORT Pathology #: [id number] Date Obtained: 08/05/2018 Date Received: 08/06/2018 INTERPRETATION/RESULTS: [...] and false-negative reports may occur. [place] [address] Result [facility] Coreen Villalobos MD LAB_1 Final Result Performing Organization Address [facility] de Phone Number [address] [address] * HIV ANTIBODY (02/20/2012 3:30 PM CDT) HIV 1/HIV 2 Non-React Non-Reacti ve HP CONVERSION 02/20/2012 3:30 PM CDT 02/20/2012 9:23 PM CDT Shannon Vargas APRN, DYE WINCH OPERATOR LAB_1 Fi nal Result Performing Organization Address [facility] Co de Phone Number HP CONVERSION from Last 3 Months or Most Recently Relevant to Health Maintenance Insurance BC OUT OF STATE [facility] BC OUT OF STATE Care Teams Talent Assistant Relationship Specialty Start Date End Date Radha Crespo MD [id number] [place] [id number] PCP - General Family Practice 05/13/20
--- OUTSIDE RECORDS SUMMARY | 2024-12-05 14:01 | XMS_ITS | Clinical Summary ---
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 Not on file Not on file Not on file Obstetrics History Last Filed Vital Signs Vital Sign Reading Time Taken Comments Blood Pressure 128/74 12/11/2022 1:48 PM CDT Pulse 93 09/12/2022 6:33 PM BATCH UNLOADER Temperature 36.7 C (98 F) 09/12/2022 6:33 PM BATCH UNLOADER Respiratory Rate 18 09/12/2022 6:33 PM BATCH UNLOADER Oxygen Saturation 98% 09/12/2022 6:33 PM BATCH UNLOADER Inhaled Oxygen Concentration - - Weight 74.8 [...] 16 Negative Negative 03/20/2023 11:44 AM CDT [facility] TYPE 18 Negative Negative 03/20/2023 11:44 AM CDT [facility] OTHER HIGH RISK TYPES Negative Negative 03/20/2023 11:44 AM CDT [facility] Other (Cervical/Vagina l) 03/14/2023 3:00 PM CDT 03/15/2023 6:31 PM CDT [facility]ative [facility] 03/20/2023 11:44 AM CDT HPV types 16, 18, 31, 33, 35, 39, 45, 51, 52, 56, 58, 59, 66 and 68 DNA were undetectable or below the pre-set threshold. Methodology: Dmitriy Addis 4800 HPV Test us Carlie Owusu PA-C MICROBIOLOGY Final Result [facility] [address] [place] [address], [place] from Last 3 Months or Most Recently Relevant to Health Maintenance Insurance [facility] [employer] Care Teams Operations Technician Relationship Specialty Start Date End [facility] PCP - General 07/03/22
[2024-12-05 15:08] VITALS: BP 147/92; PULSE 92; RESP 16; TEMP 36.7; O2SAT 98
== END 2024-12-05 17:06 | disposition home or self-care (01) ==
PROVIDERS: Emergency Provider Internal Medicine; PCP Family Medicine
DX: H54.7 Unspecified visual loss (principal)
CPT/HCPCS: 70551; 99283; 99284